=== PATIENT | male | born 1990 | race Caucasian/White ===

== ENCOUNTER 2018-10-21 06:45 | Emergency (ER) | payer OTHER ==
[~2018-10-21] VITALS: Ht 185.4 cm; Wt 72.6 kg
[2018-10-21 06:48] VITALS: BP 140/84
--- NOTE | 2018-10-21 06:48 | NUR ---
ED Nurse Note: Pt BRUCE BLACKWELL. pt states he needs medication refills. VSS. pt is alert x 4
--- NOTE | 2018-10-21 06:52 | Emergency Room Report ---
History of Present Illness General Chief Complaint: Medication Refill Source: Patient, EMS Present Illness HPI Patient is a 27-year-old male who presented with EMS for medication refill. Patient reportedly had been off of his medications for 3 weeks. He had previously been taking Thorazine as well as Zyprexa and Wellbutrin. Patient reports being a cigarette smoker.Patient states that he last used methamphetamine approximately 3 hours prior to arrival. He reports having prior history of depression.Patient reportedly had been discharged from [facility] on 10/19. Allergies: Coded Allergies: No Known Allergies (Unverified , 10/21/18) Patient History Reviewed Nursing Documentation: PMH: Agreed; PSxH: Agreed Nursing Documentation-PMH History Of Psychiatric Problem: Yes Review of Systems All Other Systems: negative except mentioned in HPI Physical Exam Vital Signs Date Time Temp Pulse Resp B/P (MAP) Pulse Ox O2 Delivery O2 Flow Rate FiO2 10/21/18 06:44 97.5 61 18 144/84 (104) 100 Room Air General Appearance: well appearing, no apparent distress, alert, GCS 15 Head: normocephalic, atraumatic ENT: hearing grossly normal, normal voice Neck: full range of motion, supple Respiratory: chest non-tender, lungs clear, no respiratory distress, speaking full sentences Gastrointestinal: normal inspection Musculoskeletal: normal inspection Neurologic: normal inspection, alert, oriented x3, responsive, school health assistant III-XII nml as tested, normal gait Psychiatric: normal inspection, judgement/insight normal, mood/affect normal Skin: normal color, no rash Medical Decision Making Diagnostic Impression: Primary Impression: Encounter for medication refill ER Course Patient presented for medication refill. Differential diagnosis include is not limited to medication refill, psychosis, among others. Patient was given oral psych medications while in the emergency department. Patient appears to have recently used methamphetamine.Patient noted to be calm and cooperative while in the emergency department. Patient was given medications for recent amphetamine use.He appears to be stable. Patient states that he was off his medication for 3 weeks. This is likely not true due to the fact that he was recently hospitalized at [facility]. And was discharged 10/19. Patient appears to be stable for discharge. Last Vital Signs Date Time Temp Pulse Resp B/P (MAP) Pulse Ox O2 Delivery O2 Flow Rate FiO2 10/21/18 06:44 97.5 61 18 144/84 (104) 100 Room Air Status: improved Disposition: HOME, SELF-CARE Condition: Stable Scripts Chlorpromazine Hcl (CHLORPROMAZINE HCL) 100 Mg Tablet 100 MG PO DAILY, #14 TAB Prov: Tejas Cole MD 10/21/18 Olanzapine* (ZYPREXA*) 10 Mg Tablet 10 MG ORAL DAILY, #30 TAB 0 Refills Prov: Tejas Cole MD 10/21/18 Tejas Cole MD Oct 21, 2018 06:52
[2018-10-21] MEDS ORDERED: LORazepam 1mg tab ORAL ONE (07:00)
[2018-10-21] MEDS ORDERED: chlorproMAZINE 25mg tab ORAL ONE (07:00)
--- NOTE | 2018-10-21 07:13 | NUR ---
HAND-OFF: Report given to MIKE Navarrete.
--- NOTE | 2018-10-21 07:14 | NUR ---
ED Nurse Note: Received patient in chair from Wendy MCKEON. patient is alert awake ambulatory steady gait. food provided for the patient. resources informations provided to the patient.
[2018-10-21] MEDS ORDERED: CHLORPROMAZINE100 MG PO (08:26)
[2018-10-21] MEDS ORDERED: ZYPREXA10 MG ORAL (08:26)
--- NOTE | 2018-10-21 08:37 | NUR ---
ED Nurse Note: faxed prescription to [facility].
--- NOTE | 2018-10-21 09:29 | NUR ---
ER DISCHARGE NOTE: Patient is cleared to be discharged per ERMD DR CANTU, pt is aox4, on room air, with stable vital signs. pt was given dc and prescription instructions, medication delivered from [facility], RN handed the medications to the patient, instruction given to take as prescribed, pt was able to verbalize understanding, pt id band removed without complications. pt is able to ambulate with steady gait. pt took all belongings. patient refused to state where he's going to, patient refused placement option at this time, resources given to the patient. patient declined transportation offer, patient provided with sandwiches and water, clothing was adequate for the weather.
[2018-10-21 09:32] VITALS: BP 135/72
== END 2018-10-21 09:32 | disposition home or self-care (01) ==
LOC: EDBD 06:45 → EMR 07:00
DX: F32.9 Major depressive disorder, single episode, unspecified (principal); Z76.0 Encounter for issue of repeat prescription; F17.210 Nicotine dependence, cigarettes, uncomplicated; F15.10 Other stimulant abuse, uncomplicated
CPT/HCPCS: 99282